=== PATIENT | female | born 1970 | race Caucasian/White ===

== ENCOUNTER 2016-08-25 11:32 | Emergency (ER) | payer OTHER ==
[2016-08-25] MEDS ORDERED: methylPREDNISolone SOD SUCC 125 MG/2 ML VIAL ONE (11:48)
[2016-08-25] MEDS ORDERED: methylPREDNISolone SOD SUCC 125 MG/2 ML VIAL IVP ONE (11:53)
--- NOTE | 2016-08-25 11:57 | ED Physician Documentation ---
Allergy Symptoms - HISTORIAN Historian: patient - HPI Chief Complaint: Skin Rash Onset: hours (last noc), other Duration: continues in ED Associated Symptoms: skin rash, itching, diffuse redness Shortness of Breath: mild (has a history of asthma, feels like lungs slightly tight from the asthma) Trouble Swallowing/ Speaking: none Identified Cause: possibly (augmentin, start 5 days ago for an ear infection) When Did Symptoms Start: 08/24/16 Context: Food Exposure: other (Augmentin) Further Comments: yes - ROS EYES/ENT: none - PAST HX Prior Allergic Reaction: other (Asthma, Hasemoto's Thyroiditis) Medical History: none Allergies/Adverse Reactions: Allergies Allergy/AdvReac Type Severity Reaction Status Date / Time amoxicillin trihydrate Allergy Verified 08/25/16 11:56 [From Augmentin] Opioids - Morphine Analogues Allergy Verified 08/25/16 11:56 potassium clavulanate Allergy Verified 08/25/16 11:56 [From Augmentin] Home Medications: Ambulatory Orders Medication Instructions Recorded Thyroid,Pork [[place] Thyroid] 162.5 mg PO DAILY 08/25/16 - SOCIAL HX Smoking History: non-smoker Alcohol Use: none Drug Use: none - FAMILY HX Family History: No - REVIEWED ASSESSMENTS Nursing Assessment Reviewed: Yes Vitals Reviewed: Yes Progress - Progress Progress: solumedrol was ordered IV in error and was ordered and given IM ED Results Lab/Radiology - Orders Orders: ED Orders Category Date Time Status methylPREDNISolone SOD SUCC [Solu-MEDROL] Med 08/25/16 11:48 Discontinued 125 mg .ROUTE .STK-MED ONE methylPREDNISolone SOD SUCC [Solu-MEDROL] Med 08/25/16 11:53 Once 125 mg IVP NOW ONE Allergy Symptons Exam - EXAM General Appearance: alert, mild distress HEENT: ENT nml inspection, pharynx nml, voice nml. No: angioedema, facial, uvula, pharynx, abnml TM (TM look normal bilaterally) Skin: nml color, warm, skin rash (hives), patchy, generalized Extremities: edema (mild) Neck: nml inspection Respiratory: no resp. distress, breath sounds nml. No: respiratory distress, wheezes, rales, rhonchi CVS: reg rate & rhythm, heart sounds normal, equal pulses, no murmur, no gallop Abdomen: non-tender, no organomegaly Neuro: oriented X3, CN's nml as tested, mood/affect nml, cognition normal Discharge Clincal Impression: Urticaria, Right ear pain Referrals: Christel Huber PRN [Primary Care Provider] - 2 Days Additional Instructions: Take Benadryl 25-50mg every 6 hours as needed. This may cause drowsiness. If you need to you may also take Zantac, (ranitidine) 150mg twice a day. I will give a script for some oral steroids to start tomorrow if symptoms have not improved. If you have nay further problems or start to have any further breathing problems to return to the ED. Home Medications: Ambulatory Orders Thyroid,Pork [[place] Thyroid] 162.5 mg PO DAILY 08/25/16 Condition: Stable Disposition: HOME, SELF-CARE Decision to Admit: NO Date of Decison to Admit: 08/25/16 Decision Time: 12:24
[2016-08-25 13:03] VITALS: BP 140/88
== END 2016-08-25 12:43 | disposition home or self-care (01) ==
LOC: ED 11:32
DX: L50.9 Urticaria, unspecified (principal); H92.01 Otalgia, right ear
CPT/HCPCS: J2930 ×2; 96372; 99283

== ENCOUNTER 2017-10-02 10:05 | Outpatient (CLI) | payer OTHER | END 2017-10-02 10:06 | LOC: CARD 10:05 | PROVIDERS: ATTEND Family Medicine | DX: R00.2 Palpitations (principal); R03.0 Elevated blood-pressure reading, without diagnosis of hypertension | CPT/HCPCS: 93270 ==